=== PATIENT | male | born 1980 | race Two or more races ===

== ENCOUNTER 2024-06-06 13:53 | Inpatient (IN) | payer OTHER ==
[2024-06-06 15:21] VITALS: BMI 20.6
[2024-06-06] MEDS ORDERED: NICOTINE POLACRILEX 2 MG LOZENGE BC PRN (18:42)
[2024-06-06] MEDS ORDERED: DOCUSATE SODIUM 100 MG CAPSULE (FP) PO PRN (18:42)
[2024-06-06] MEDS ORDERED: NALOXONE HCL 0.4 MG/ML VIAL IM PRN (18:42)
[2024-06-06] MEDS ORDERED: MAG HYDROX/AL HYDROX/SIMETH 30 ML UNIT-DOSE CUP PO PRN (18:42)
[2024-06-06] MEDS ORDERED: BENZONATATE 200 MG CAPSULE PO PRN (18:42)
[2024-06-06] MEDS ORDERED: BENZOCAINE/MENTHOL (CHLORASEPTIC ) LOZENGE MM PRN (18:42)
[2024-06-06] MEDS ORDERED: POLYETHYLENE GLYCOL (HEALTHYLAX) 3350 17 GM PACKET PO PRN (18:42)
[2024-06-06] MEDS ORDERED: guaiFENesin 600 MG TABLET.ER (FP) PO PRN (18:42)
[2024-06-06] MEDS ORDERED: LOPERAMIDE HCL 2 MG CAPSULE PO PRN (18:42)
[2024-06-06] MEDS ORDERED: IBUPROFEN 400 MG TABLET (FP) PO PRN (18:42)
[2024-06-06] MEDS ORDERED: NALOXONE (NARCAN) HCL 4 MG/0.1 ML SPRAY NS PRN (18:42)
[2024-06-06] MEDS ORDERED: NICOTINE POLACRILEX 2 MG GUM BUC PRN (18:42)
[2024-06-06] MEDS ORDERED: MAGNESIUM HYDROX 2400MG/30ML ORAL SUSPENSION 30 ML CUP PO PRN (18:42)
[2024-06-06] MEDS ORDERED: BENZOCAINE 20 % GEL TUBE MM PRN (19:32)
[2024-06-06] MEDS ORDERED: IBUPROFEN 600 MG TABLET (FP) PO ONE (19:41)
[2024-06-06] MEDS ORDERED: ACETAMINOPHEN 325 MG TABLET (FP) ONE (19:41)
[2024-06-06] MEDS: IBUPROFEN 600 MG TABLET (FP) PO PRN (19:48)
[2024-06-06] MEDS: ACETAMINOPHEN 325 MG TABLET (FP) PO PRN (19:50)
[2024-06-06] MEDS: THIAMINE 100 MG TABLET PO SCH (21:43)
[2024-06-06] MEDS: P-EPHED 60MG/TRIPROLIDI 2.5MG TABLET PO PRN (21:43)
[2024-06-06] MEDS: MELATONIN 5 MG TABLETS PO SCH (21:44)
[2024-06-06] MEDS: TUBERCULIN PPD 5 TU/0.1ML SYRINGE (IN PATIENT USE ONLY) ID ONE (21:45)
[2024-06-06 22:10] LABS: PH,URINE 6.5 (5.0-8.0); URINE APPEARANCE CLEAR; URINE BILIRUBIN NEGATIVE (NEGATIVE); URINE COLOR YELLOW; URINE GLUCOSE (UA) NEGATIVE (NEGATIVE); URINE KETONE NEGATIVE (NEGATIVE); URINE LEUK ESTERASE NEGATIVE (NEGATIVE); URINE NITRITE NEGATIVE (NEGATIVE); URINE PROTEIN NEGATIVE (NEGATIVE)
[2024-06-07] MEDS: hydrOXYzine PAMOATE 25 MG CAPSULE (FP) PO PRN (07:57)
[2024-06-07] MEDS ORDERED: methaDONE HCL 10 MG TABLET PO SCH (08:45)
[2024-06-07] MEDS ORDERED: methaDONE HCL 40 MG DISPERSABLE TABLET PO SCH (08:48)
[2024-06-07] MEDS: methaDONE HCL 40 MG DISPERSABLE TABLET PO SCH (08:53)
[2024-06-07] MEDS: PRENATAL VITAMINS W/ FOLIC ACID TABLET (FP) PO SCH (09:16)
[2024-06-07 11:31] LABS: HEMATOCRIT 36.7 % (35.4-49); HEMOGLOBIN 12.4 GM/dL (11.7-16.9); MCH 29.4 pg (25.7-33.7); MCHC 33.8 g/dl (32.0-35.9); MEAN CELL VOLUME 87.2 fl (80-96); MEAN PLT VOLUME 9.2 fl (7.5-11.1); PLATELET COUNT 247 10^3/uL (134-434); RBC 4.21 M/mm3 (4.00-5.60); RDW 13.4 % (11.9-15.9); WHITE BLOOD COUNT 6.6 K/mm3 (4.0-10.0)
[2024-06-07 13:10] LABS: CHLORIDE 106 mmol/L (98-107); POTASSIUM 4.1 mmol/L (3.5-5.1); SODIUM 142 mmol/L (136-145)
[2024-06-07 13:12] LABS: CALCIUM 8.5 mg/dL (8.5-10.1)
[2024-06-07 13:13] LABS: ALBUMIN 3.3 g/dl (3.4-5.0); ANION GAP 6 mmol/L (4-13); BLOOD UREA NITROGEN 11.5 mg/dL (7-18); CO2 30 mmol/L (21-32); GLUCOSE,RANDOM 81 mg/dL (74-106)
[2024-06-07 13:16] LABS: SGPT/ALT 22 U/L (13-61)
[2024-06-07 13:17] LABS: BILIRUBIN,TOTAL 0.4 mg/dL (0.2-1)
[2024-06-07 13:18] LABS: TOT PROT 5.7 g/dl (6.4-8.2)
[2024-06-07 13:19] LABS: ALK PHOS 57 U/L (45-117)
[2024-06-07 13:58] LABS: CREATININE 0.8 mg/dL (0.55-1.3); SGOT/AST 19 U/L (15-37)
[2024-06-07 15:23] LABS: SYPHILIS W/ RPR CONF NON-REACTIVE (NONREACTIVE)
[2024-06-07] MEDS: QUEtiapine FUMARATE 50 MG TABLET PO SCH (21:52)
[2024-06-08] MEDS: BUPRENORPHINE/NALOXONE 8 MG/2 MG FILM PACKET SL SCH (12:17)
[2024-06-09 06:16] VITALS: BP 112/73; PULSE 65; RESP 18; TEMP 98.7
== END 2024-06-09 10:00 | disposition left against medical advice (07) | DRG 894 ==
LOC: YASAS 13:53 → Y3NR 20:01
PROVIDERS: ADMIT Allergy & Immunology; ATTEND Psychiatry & Neurology Pain Medicine
PROC: HZ42ZZZ Group Counseling for Substance Abuse Treatment, Cognitive-Behavioral (ICD-10-PCS; principal; 2024-06-06)
DX: F11.20 Opioid dependence, uncomplicated (principal); F14.20 Cocaine dependence, uncomplicated; F19.282 Other psychoactive substance dependence with psychoactive substance-induced sleep disorder; Z59.00 Homelessness unspecified; F10.20 Alcohol dependence, uncomplicated; F12.20 Cannabis dependence, uncomplicated; F17.210 Nicotine dependence, cigarettes, uncomplicated; F31.9 Bipolar disorder, unspecified; F19.24 Other psychoactive substance dependence with psychoactive substance-induced mood disorder; F41.9 Anxiety disorder, unspecified; F43.10 Post-traumatic stress disorder, unspecified; Z56.0 Unemployment, unspecified
CPT/HCPCS: 36415; 80053; 80305; 80307; 81003; 85027; 86780; 86803; 87811